=== PATIENT | female | born 1985 | race Caucasian/White ===

== ENCOUNTER 2018-08-20 08:51 | Emergency (ER) | payer SELFPAY ==
[~2018-08-20] VITALS: Ht 157.5 cm; Wt 67.9 kg
[2018-08-20 08:54] VITALS: BP 129/91
[2018-08-20] MEDS ORDERED: azithromycin 250mg tablet PO ONE (09:35)
[2018-08-20] MEDS ORDERED: metroNIDAZOLE 500mg tablet PO ONE (09:35)
[2018-08-20] MEDS ORDERED: CefTRIAXone 250MG inj IM ONE (09:35)
[2018-08-20] MEDS ORDERED: FLUC150T5 PO (09:35)
[2018-08-20 09:54] LABS: CLARITY,URINE SLIGHTLY CLOUDY (Clear); COLOR,URINE YELLOW (Yellow); GLUCOSE, URINE NEGATIVE (Neg); KETONES,URINE NEGATIVE (Neg); LEUKOCYTE ESTERASE ,URINE NEGATIVE (Neg); NITRITES, URINE NEGATIVE (Neg); OCCULT BLOOD,URINE TRACE-INTACT (Neg); PROTEIN,URINE NEGATIVE (Neg); URINE HCG NEGATIVE (NEG); UROBILINOGEN,URINE 0.2 E.U/dL (0.2-1.0)
[2018-08-20 09:55] LABS: UA COLLECTION TYPE CLN CATCH MIDSTREAM
[2018-08-20] MEDS ORDERED: CefTRIAXone 250MG IM Kit w/LIDOcaine IM ONE (09:55)
[2018-08-20 10:00] LABS: BACTERIA,URINE 2+ /HPF (Neg); MUCUS STRANDS FEW /LPF (Neg); RBC,URINE 0-2 /HPF (0-2); SQUAMOUS EPITHELIAL CELL,UR MANY /LPF (FEW); WBC,URINE 0-4 /HPF (0-4)
--- NOTE | 2018-08-20 10:23 | NUR ---
PT CALLED AND NOTIFIED THAT URINE SAMPLE WAS NEGATIVE FOR UTI.
== END 2018-08-20 10:00 | disposition home or self-care (01) ==
LOC: ER 08:52
DX: N89.8 Other specified noninflammatory disorders of vagina (principal)
CPT/HCPCS: 81001; 81025; 96372; 99283; J0696; J3490